=== PATIENT | female | born 1955 | race American Indian/Alaskan Native ===

== ENCOUNTER 2024-04-05 02:05 | Inpatient (IN) | payer OTHER, SELFPAY ==
[2024-04-04 19:16] VITALS: BP 113/66
[2024-04-04 19:45] LABS: % Basophils 1.5 % (0-2); % Eosinophils 5.9 % (0-6); % Immature Granulocytes 0.3 % (0-0.5); % Lymphocytes 23.1 % (20.5-51.1); % Monocytes 7.5 % (1.7-9.3); % Neutrophils 61.7 % (42.2-75.2); Absolute Basophils 0.1 10^3/uL (0-0.2); Absolute Eosinophils 0.4 10^3/uL (0-0.7); Absolute Lymphocytes 1.7 10^3/uL (1.2-3.4); Absolute Monocytes 0.5 10^3/uL (0.1-0.6); Absolute Neutrophils 4.5 10^3/uL (1.4-6.5); Hematocrit 34.2 % (37.0-47.0); Hemoglobin 11.4 g/dL (12.0-16.0); Mean Corp Hgb Conc. 33.3 g/dL (33.0-37.0); Mean Corpuscular Hgb 30.2 pg (27.0-31.0); Mean Corpuscular Volume 90.5 fL (81.0-99.0); Mean Platelet Volume 11.1 fL (7.4-10.4); Nucleated Red Blood Cells % 0 %; Platelet Count 324 10^3/uL (130-400); Red Blood Cell Count 3.78 10^6/uL (4.20-5.40); Red Cell Dist. Width 14.5 % (11.5-14.5); White Blood Cell Count 7.2 10^3/uL (4.8-10.8)
[2024-04-04 19:57] LABS: Lithium 1.5 mmol/L (0.6-1.2)
[2024-04-04 19:58] LABS: ALT (SGPT) 24 U/L (0-35); AST (SGOT) 24 U/L (14-36); Albumin 4.6 g/dl (3.5-5.0); Alkaline Phosphatase 109 U/L (38-126); Blood Urea Nitrogen 15 mg/dl (7-17); Calcium 10.5 mg/dl (8.4-10.2); Carbon Dioxide 21 mmol/L (22-30); Chloride 104 mmol/L (98-107); Glucose 137 mg/dl (70-99); Potassium 4.6 mmol/L (3.5-5.1); Sodium 137 mmol/L (135-145); Total Bilirubin 0.7 mg/dl (0.2-1.3); Total Protein 7.4 g/dl (6.3-8.2); eGFR > 60.00
[2024-04-04 20:06] VITALS: BMI 22.6
[2024-04-04 21:00] VITALS: BP 115/57
[2024-04-04 22:00] VITALS: BP 113/62
[2024-04-04 23:00] VITALS: BP 116/66
--- NOTE | 2024-04-04 23:42 | ED.GENMED ---
History of Present Illness
General
Chief Complaint: Overdose Unintentional
Source: patient and family
Exam Limitations: none
Time Seen by Provider: 04/04/24 20:19
Nursing documentation reviewed up to this point in time: agreed with
History of Present Illness
History of Present Illness:
Patient is a 68-year-old female long history of being bipolar and on lithium however over the last 2 weeks the patient has been getting weaker and having difficulty ambulating. Patient has not had a change in her medication other than her
psychiatrist trying to bring down her dosages of Prozac, Klonopin and Xanax. Patient denies any anorexia or nausea but does have postprandial diarrhea for the past few months and has gotten worse over the past few days. Patient denies any decrease
in weight. Patient denies fever or chills, nasal congestion, sore throat or cough. Patient had knee surgery in September of this year and since then has had increasing difficulties. Patient denies any symptoms. Patient's lithium level was checked
and found to be 1.9 which normally are level is 0.5.
Past History
Past History
ED Past Medical History: HTN, NIDDM and Psychiatric (Bipolar)
Social History
Tobacco: Non-smoker
Alcohol: None
Drug: None
Review of Systems
Review of Systems
All Other Systems: ROS reviewed and negative except as documented in HPI and ROS
Constitutional: Reports fatigue; Denies fever, weight loss or chills
EENT: Reports no symptoms
Respiratory: Reports no symptoms
Cardiac: Reports no symptoms
ABD/GI: Reports diarrhea; Denies abdominal pain, nausea, vomiting, bloody stools, black stools or anorexia
: Reports no symptoms
Musculoskeletal: Reports no symptoms
Skin: Reports no symptoms
Neurological: Reports weakness (Generalized)
Hematologic/Lymphatic: Reports no symptoms
Psychiatric: Reports no symptoms
Phy Exam
Physical Exam
Physical Exam:
Physical Exam
General: No apparent distress, alert and appropriate, well nourished, dry mucous membranes
HENT: Normocephalic, supple with no lymphadenopathy, no thyromegaly
Eyes: Clear sclera, conjuctiva without injection
Heart: Regular rhythm and rate. No S3, S4. No murmur. No NVD
Lungs: No respiratory distress, no stridor, lung sounds clear and equal bilaterally
Abdomen: Soft, nontender, no organomegaly, no CVA tenderness, BS good
Neuro: Alert and oriented x 3, CN II - XII intact, no motor focality, no cerebellar dysfunction
Skin: no rash
Psychiatric: well kept. interactive and cooperative
Extremities: No edema, cyanosis, tenderness, Good and equal peripheral pulses.
Course
Orders/Labs/Results
Orders:
Orders
04/04/24 19:19
EKG [Electrocardiogram (*1)] Urgent
Reason for Study: Other
Other Reason for Exam: high lithium level
04/04/24 19:20
EKG- Treatment ONCE
04/04/24 19:33
CBC/With Diff [Complete Blood Count/With Diff] Urgent
CMP [Comprehensive Metabolic Panel] Urgent
[place] Urgent
04/04/24 20:56
0.9% Sodium Chloride 1000 ml [Nss] 1,000 ml IV BOLUS
04/04/24 21:00
0.9% Sodium Chloride 500 ml [Nss] 500 ml IV 200 mls/hr
Abnormal Lab Results
04/04/24
19:33
RBC 3.78 L 10^6/uL
(4.20-5.40)
Hgb 11.4 L g/dL
(12.0-16.0)
Hct 34.2 L %
(37.0-47.0)
MPV 11.1 H fL
(7.4-10.4)
Carbon Dioxide 21 L mmol/L
(22-30)
Glucose 137 H mg/dl
(70-99)
Calcium 10.5 H mg/dl
(8.4-10.2)
[place] 1.5 H mmol/L
(0.6-1.2)
04/04/24 19:33
04/04/24 19:33
Vital Signs
Initial and Last Documented VS:
Initial Vital Signs
Temp Pulse Resp BP Pulse Ox
97.8 F 72 15 113/66 95
04/04/24 19:16 04/04/24 19:16 04/04/24 19:16 04/04/24 19:16 04/04/24 19:16
Last Documented Vital Signs
Temp Pulse Resp BP Pulse Ox
97.8 F 61 15 130/69 100
04/04/24 19:16 04/05/24 00:00 04/05/24 00:00 04/05/24 00:00 04/05/24 00:00
*Radiology
Radiology exam reviewed: other (na)
*Pulse Oximetry
Patient hypoxic: no
*EKG
Interpreted by ED Provider?: Yes
EKG Intrepretation Date: 04/05/24
EKG Intrepretation Time: 00:20
Interpretation: abnormal
Comparison EKG: no comparison EKG present
Heart Rate: 73
Rate: normal
Rhythm: sinus
[place]: normal axis
Interval: normal interval
QRS Pattern: right bundle branch block
Ischemia: no ischemia
*Claims Specialist Interpretation
Rate: normal
Interpretation: normal
Heart Rate: 73
Rhythm: sinus
*Critical Care Note
Total Time (30-74mins, 75-104mins- exclusive of procedures): Not Applicable
ED Attending Note
-
Portions of this chart may have been created with voice recognition software.� Occasional wrong word or��sound alike� substitutions may have occurred due to the inherent limitations of voice recognition software.
Discharge Plan
Departure
Patient Disposition: Admit
Date of Disposition: 04/05/24
Time of Disposition: 00:21
Admit to: Telemetry
Admit to doctor: Hospitalist
Presentation/result/management discussed w/ accepting MD/DO: Hospitalist
Patient with high blood pressure during this ER visit?: No
Condition: Fair
Covid-19: Not Applicable
Discharge Problem:
[place] toxicity
Prescriptions:
No Action
alprazolam 1 mg Tablet
1 mg PO QPM
clonazepam 0.5 mg Tablet
0.75 mg PO DAILY
Patient Comments:
04/04/2024: last filled 03/20/24, 15 tabs [facility]
lithium carbonate 450 mg tablet extended release
450 mg PO QPM
pantoprazole 40 mg Tablet,Delayed Release (Dr/Ec)
40 mg PO QPM
fluoxetine 20 mg Tablet
30 mg PO DAILY
lisinopril 10 mg tablet
10 mg PO DAILY
rosuvastatin 10 mg tablet
10 mg PO DAILY
alogliptin 6.25 mg Tablet
6.25 mg PO QPM
Referrals:
Paty Fuchs MD [Family Provider] -
Interventions
Interventions:
*Risk Screen - Suicide Last Done: 04/04/24 19:16
*General Assessment Last Done: 04/04/24 19:16
*Neglect/Abuse Screening Last Done: 04/04/24 19:16
ED- Cardiac Assessment Last Done: 04/04/24 20:06
ED- Neurological Assessment Last Done: 04/04/24 20:06
ED-Psychological Assessment Last Done: 04/04/24 20:06
ED- Pulmonary Assessment Last Done: 04/04/24 20:06
Discharge Date and Time
Print Language: [place]
[2024-04-04] MEDS: NSS 1000 IV (23:51)
[2024-04-04] MEDS: NSS 500 IV (23:51)
[2024-04-05] VITALS (7 sets, daily range): BP systolic 108–130; BP diastolic 52–89; BMI 22.6
--- NOTE | 2024-04-05 01:25 | HPS.HSE ---
Family Physician
-
Family Physician: Paty Fuchs
Chief Complaint
-
Elevated lithium level
History of Present Illness
Patient with history of bipolar disorder on lithium who presents to the emergency department after a check of the lithium showed a level of 1.9.
Patient and daughter reported that patient's lithium was last checked several months ago around September at the time of alterations in pain medications. After settling the pain medications they have not checked lithium since. She did had a new
psychiatrist we decided to check the lithium a few days ago. It was actually checked approximately 3 days ago. At that time the lithium level was 1.9. He initially asked to stop taking the lithium and observe for 3 days. However family reports
that the patient has been having increasing confusion over the last month. She has had increasing tremor and instability as well as some weakness. She had diarrhea more recently. Denies polyuria. Due to these findings the patient was referred to
the hospital for evaluation.
In the ED she was afebrile hemodynamically stable and in no acute distress. Her CBC was unchanged and unremarkable. Chemistries are also stable with a creatinine of 0.9 and a potassium of 4.6. The lithium level was 1.5. Her last dose of lithium
was Wednesday evening for which she took the full 50 mg in the evening.
Medical History
Past Medical History
Past Medical History: Reports Psychiatric
Additional Past Medical History:
BIPOLAR
Past Surgical History: Reports Orthopedic
Additional Past Surgical History:
Total knee arthroplasty
Social History
Tobacco: Non-smoker
Alcohol: None
Drug: None
Personal:
Living: With Family
Employment: Not Employed
Family History
Family History: Not pertinent
Allergies / Home Medications
Allergies reflects when Allergies were last updated in [employer].
Home Medications with original date entered in [employer]
Allergy/Medication List:
Allergies
Allergy/AdvReac Type Severity Reaction Status Date / Time
No Known Allergies Allergy Unverified 04/04/24 22:02
Home Medications
alogliptin 6.25 mg tablet 6.25 mg PO QPM 04/04/24
alprazolam 1 mg tablet 1 mg PO QPM 04/04/24
clonazepam 0.5 mg tablet 0.75 mg PO DAILY 04/04/24
fluoxetine 20 mg tablet 30 mg PO DAILY 04/04/24
lisinopril 10 mg tablet 10 mg PO DAILY 04/04/24
lithium carbonate 450 mg tablet,extended release 450 mg PO QPM 04/04/24
pantoprazole 40 mg tablet,delayed release 40 mg PO QPM 04/04/24
rosuvastatin 10 mg tablet 10 mg PO DAILY 04/04/24
Review of Systems
-
History Source: Patient and Family
Constitutional: Reports No Symptoms
EENT: Reports No Symptoms
Respiratory: Reports No Symptoms
Cardiac: Reports No Symptoms
Abdomen/GI: Reports Diarrhea
Musculoskeletal: Reports No Symptoms
Skin: Reports No Symptoms
Neurological: Reports No Symptoms
Endocrine: Reports No Symptoms
Hematologic/Lymphatic: Reports No Symptoms
Psych: Reports No Symptoms
Physical Exam
Vital Signs
Vital Signs
Temp Pulse Resp BP Pulse Ox
97.8 F 61 15 130/69 100
04/04/24 19:16 04/05/24 00:00 04/05/24 00:00 04/05/24 00:00 04/05/24 00:00
Physical Exam
General: Well Developed, Well Nourished and No Apparent Distress
HEENT: NormoCephalic, Anicteric, Moist mucous membranes and Atraumatic
Respiratory: Clear
Cardiac: S1/S2 and Regular Rhythm
Breast: Deferred by me
GI: Soft, Non Tender, Non Distended and Normal Bowel Sounds
Rectal: Deferred by Provider
Genito-urinary: Deferred by me
Musculoskeletal: No Clubbing, No Cyanosis and No Edema
Skin: Warm
Neuro: AO x 3
Hematologic/Lymphatic: No Lymphadenopathy
Psych: Calm
Laboratory Results
-
04/04/24 19:33
04/04/24:33
Laboratory Results
Total Bilirubin 0.7 mg/dl (0.2-1.3) 04/04/24:33
AST 24 U/L (14-36) 04/04/24:33
ALT 24 U/L (0-35) 04/04/24:33
Alkaline Phosphatase 109 U/L (38-126) 04/04/24:33
Data Reviewed
-
Lab Data: Labs Reviewed by me
Old Records: Reviewed
Impression/Plan
-
IMPRESSION:
Patient with history of bipolar comes in after routine blood test shows elevated lithium level, she does have subacute symptoms over the last month with weakness tremors confusion which will be consistent with subacute lithium toxicity. D level was
1.9 at the physician's office 3 days ago. On admission to the ED the patient sedation level was 1.5. She appears mostly euvolemic despite a couple days of some diarrhea.
PLAN:
1. [place] toxicity - Mild to moderate symptoms. Mild elevation. Normal renal function. No signs of polyuria or hypernatremia.
- admit to med/surg
- volume expansion, s/p bolus in ED, continuing with 175 ml/hr ns
- monitor serum Na
- repeat Li level in am, when level below 0.8, fluids can be d/c and patient d/c'd
- hold lithium carbonate
- pt eval
2. BIPOLAR
- continue fluoxetin and benzos for now
3. DM II
-on gliptin at home, continue with sliding scale insulin for now
Other issues
- continue lisinopril, ppi
DVT PPX - lovenox sq
Code Status - Full Code
[2024-04-05] MEDS: NSS 1000 IV ×4 (02:42→23:04)
[2024-04-05] MEDS: TYLENOL 650 MG PO (03:56)
[2024-04-05 06:51] LABS: Blood Urea Nitrogen 12 mg/dl (7-17); Calcium 9.6 mg/dl (8.4-10.2); Carbon Dioxide 18 mmol/L (22-30); Chloride 113 mmol/L (98-107); Estimated Creatinine Clearance 53 ml/min; Glucose 165 mg/dl (70-99); Lithium 1.3 mmol/L (0.6-1.2); Potassium 4.6 mmol/L (3.5-5.1); Sodium 140 mmol/L (135-145); eGFR > 60.00
[2024-04-05] MEDS: CRESTOR 10 MG PO (08:13)
[2024-04-05] MEDS: PROZAC 30 MG PO (08:13)
[2024-04-05] MEDS: ZESTRIL 10 MG PO (08:14)
[2024-04-05 08:23] LABS: Glucose - Point of Care 111 mg/dl (70-99)
--- NOTE | 2024-04-05 11:28 | W.PN.HOSP.TC ---
Today's Communication/Plan
-
Continue with IVF
Trend BMP and lithium levels
[place] level goal <0.8
Assessment / Plan
Assessment / Plan
#[place] toxicity
-Mild to moderate symptoms consisting of tremor, confusion, weakness; no nephrogenic DI
-Has been on lithium for many years with stable serum levels
-Had recent knee surgery, was on tramadol, did not have levels checked for last 3-months
-Upon review of literature no findings of tramadol interfering with lithium excretion
-Serum creatinine 1.9 on outpatient labs, 1.5�1.3 here while on IVF
-Will continue IVF and trend lithium levels and BMP
-Plan for DC off lithium when levels <0.8, symptoms minimal
-Will need to follow-up outpatient for mood stabilizer regimen
#Bipolar disorder
-Home medications included lithium, fluoxetine, benzodiazepine
-Holding lithium as above
-Mood seems stable
#T2DM
#HLD
-No recent A1c or FLP; home medications include alogliptin and statin
-No known systemic microvascular complications or ASCVD history
-Alogliptin held, on ISS with Accu-Cheks; continued on statin
#HTN
-Home medications include lisinopril, no history of systemic complications
-Blood pressure currently well-controlled
DVT prophylaxis subcutaneous Lovenox
Diet: Regular
CODE STATUS: Full code
Anticipated Discharge: Within 24 hours
Subjective/Interval History
-
Date of Service: April 05, 2024
Seen and examined at the bedside. No acute events reported overnight. AFVSS this morning.
Her son was at the bedside and helped interpret, as well as received an update. Symptoms are improving though still present. Serum sodium without signs of nephrogenic DI as of now
Denies chest pain, dyspnea, fevers or chills, GI issues, urinary issue, bleeding or bruising, focal weakness or paresthesia. Does continue to have generalized weakness, mild confusion. Tremor improved.
Objective Data
-
Labs:
Laboratory Results
04/05/24 04/05/24
06:03 14:00
Sodium 140 Pending
Potassium 4.6 Pending
Chloride 113 H Pending
Carbon Dioxide 18 L Pending
BUN 12 Pending
Creatinine 0.8 Pending
Glucose 165 H Pending
Calcium 9.6 Pending
Vital Signs:
Vital Signs
Temp Pulse Resp BP Pulse Ox
98.0 F 63 12 127/63 100
04/05/24 07:00 04/05/24 07:00 04/05/24 07:00 04/05/24 07:00 04/05/24 07:00
Review of Systems
-
History Source: Patient and Family
All other systems: Reviewed and negative
Physical Exam
-
General: Well Nourished, No Apparent Distress and Comfortable
HEENT: Normocephalic, Atraumatic and Moist Mucous Membranes
Respiratory: Clear to Auscultation and Non Labored Respirations
Cardiac: Regular Rhythm and S1/S2; Negative Murmur, Rub or Gallop
GI: Soft, Nontender, Nondistended and Normal Bowel Sounds
Musculoskeletal: No Clubbing, No Cyanosis and No Edema
Skin: Warm and Dry; Negative Rash
Neuro: AO x 3, Tremors (Very mild hand tremor with arms extended), Nonfocal/Grossly Intact and Central Nerve's Intact; Negative Slurred Speech
Psych: Calm
Data Reviewed
-
Labs: Labs Reviewed by me, Discussed with Patient and Discussed with Family
[2024-04-05 12:09] LABS: Glucose - Point of Care 134 mg/dl (70-99)
--- NOTE | 2024-04-05 14:00 | CM ---
CM reviewed chart. CM introduced self and role. Patient's son also in room and assisted in answering some of the questions. Patient lives at home with her son and daughter. They live in a multi-level home and [facility] has 1st floor set up. There are 3
steps to enter. She does not drive or work. She is independent. She does not own any DME. She denies any +SDOHs. She has an active PCP and pharmacy. Son asked what the plan of care is. CM educated him.
ANTICIPATED DISCHARGE DISPOSITION: Home with son and daughter, when medically cleared.
[2024-04-05 14:21] LABS: Blood Urea Nitrogen 8 mg/dl (7-17); Calcium 9.9 mg/dl (8.4-10.2); Carbon Dioxide 20 mmol/L (22-30); Chloride 113 mmol/L (98-107); Estimated Creatinine Clearance 61 ml/min; Glucose 185 mg/dl (70-99); Potassium 5.1 mmol/L (3.5-5.1); Sodium 142 mmol/L (135-145); eGFR > 60.00
[2024-04-05 16:18] LABS: Glucose - Point of Care 130 mg/dl (70-99)
[2024-04-05] MEDS: PROTONIX 40 MG PO (17:29)
[2024-04-05] MEDS: LOVENOX 40 MG SC (17:29)
[2024-04-05] MEDS: XANAX 1 MG PO (17:54)
[2024-04-05 21:16] LABS: Glucose - Point of Care 97 mg/dl (70-99)
[2024-04-06] MEDS: TYLENOL 650 MG PO (02:45)
[2024-04-06 07:27] VITALS: BP 124/69
[2024-04-06 08:03] LABS: Glucose - Point of Care 100 mg/dl (70-99)
[2024-04-06] MEDS: CRESTOR 10 MG PO (08:46)
[2024-04-06] MEDS: PROZAC 30 MG PO (08:46)
[2024-04-06] MEDS: KLONOPIN 0.75 MG PO (08:46)
[2024-04-06] MEDS: ZESTRIL 10 MG PO (08:46)
[2024-04-06 09:23] LABS: Blood Urea Nitrogen 10 mg/dl (7-17); Carbon Dioxide 18 mmol/L (22-30); Chloride 113 mmol/L (98-107); Estimated Creatinine Clearance 61 ml/min; Glucose 116 mg/dl (70-99); Lithium 0.7 mmol/L (0.6-1.2); Potassium 4.6 mmol/L (3.5-5.1); Sodium 141 mmol/L (135-145); eGFR > 60.00
--- NOTE | 2024-04-06 10:28 | W.PN.HOSP.TC ---
Today's Communication/Plan
-
Discontinue lithium until follow-up with psychiatry
SSRI taper outpatient now that she is off lithium
Discharge
Assessment / Plan
Assessment / Plan
#[place] toxicity
-Mild to moderate symptoms consisting of tremor, confusion, weakness; no nephrogenic DI
-Has been on lithium for many years with stable serum levels
-Had recent knee surgery, was on tramadol, did not have levels checked for last 3-months
-Upon review of literature no findings of tramadol interfering with lithium excretion
-Serum creatinine 1.9 on outpatient labs, 1.5�1.3 here while on IVF
-Will continue IVF and trend lithium levels and BMP
-Plan for DC off lithium when levels <0.8, symptoms minimal
-Will need to follow-up outpatient for mood stabilizer regimen
#Bipolar disorder
-Home medications included lithium, fluoxetine, benzodiazepine
-Holding lithium as above
-Mood seems stable
#T2DM
#HLD
-No recent A1c or FLP; home medications include alogliptin and statin
-No known systemic microvascular complications or ASCVD history
-Alogliptin held, on ISS with Accu-Cheks; continued on statin
#HTN
-Home medications include lisinopril, no history of systemic complications
-Blood pressure currently well-controlled
DVT prophylaxis subcutaneous Lovenox
Diet: Regular
CODE STATUS: Full code
Anticipated Discharge: Today
Subjective/Interval History
-
Date of Service: April 06, 2024
Seen and examined at the bedside. No acute events reported overnight. AFVSS this morning.
Morning labs came back with lithium level 0.7, serum sodium stable at 144
Patient states her weakness, tremor, confusion are improved. Daughter at the bedside and agrees. Plan for discharge
Objective Data
-
Labs:
Laboratory Results
04/06/24
08:08
Sodium 141
Potassium 4.6
Chloride 113 H
Carbon Dioxide 18 L
BUN 10
Creatinine 0.7
Glucose 116 H
Calcium 10.0
Vital Signs:
Vital Signs
Temp Pulse Resp BP Pulse Ox
97.4 F 69 18 124/69 100
04/06/24 07:27 04/06/24 07:27 04/06/24 07:27 04/06/24 07:27 04/06/24 07:27
Review of Systems
-
History Source: Patient
All other systems: Reviewed and negative
Physical Exam
-
General: Well Nourished and No Apparent Distress
HEENT: Normocephalic, Atraumatic and Moist Mucous Membranes
Respiratory: Clear to Auscultation and Non Labored Respirations
Cardiac: Regular Rhythm and S1/S2; Negative Murmur
GI: Soft, Nontender, Nondistended and Normal Bowel Sounds
Musculoskeletal: No Clubbing, No Cyanosis and No Edema
Skin: Warm and Dry; Negative Rash
Neuro: AO x 3, Nonfocal/Grossly Intact and Central Nerve's Intact
Psych: Calm
Data Reviewed
-
Labs: Labs Reviewed by me, Discussed with Patient and Discussed with Family (Daughter)
[2024-04-06 11:27] VITALS: BP 144/68
--- NOTE | 2024-04-06 13:45 | W.DCSUMMARY ---
Discharge Summary
Discharge Data
Date of Admission: 04/05/24
Date of Discharge: 04/06/24
-
Pending Results: No
Hospital Course
68-year-old female with bipolar disorder, T2DM, HTN, HLD that presented to the hospital with weakness, tremor, confusion over multiple weeks. Outpatient labs with creatinine level 1.9. Was directed to come to the ED by her psychiatrist. Upon
arrival lithium level elevated and was started on IV fluids. Monitored lithium level with goal <0.8 which was achieved on day 2 of hospital stay. Monitor BMP without any evidence of nephrogenic diabetes insipidus. Her symptoms improved following
illumination of lithium and normalization of her blood levels. [place] was discontinued. Started taper of fluoxetine due to potential for worsening puneet in the context of bipolar disorder. Should start 20 mg fluoxetine starting after discharge.
Will follow-up with psychiatrist for optimization of bipolar regimen and further guidance on SSRI taper.
Discharge Plan
-
Patient Disposition: Home (Routine Discharge)
Discharge Diagnosis/Procedures: [place] toxicity
Condition: Good
Diet: No restrictions
Activity: As tolerated
Driving Restrictions: As prior to admission
Bathing Restrictions: None
Activity Restrictions/Additional Instructions:
After discharge from hospital follow up with your family doctor and psychiatrist within 1 to 2 weeks.
If there are any acute changes to mood then call psychiatrist for recommendations
Instructions: [place]
Referrals:
Paty Fuchs MD [Family Provider] -
Additional Discharge Medication Instructions: Discontinue lithium carbonate
Decreased dose of fluoxetine to 20 mg daily. Continue to taper fluoxetine as directed by psychiatrist
Prescriptions:
New
fluoxetine 10 mg Capsule
20 mg PO DAILY 7 Days Qty: 14 0RF
Continued
alprazolam 1 mg Tablet
1 mg PO QPM
clonazepam 0.5 mg Tablet
0.75 mg PO DAILY
Patient Comments:
04/04/2024: last filled 03/20/24, [facility]
pantoprazole 40 mg Tablet,Delayed Release (Dr/Ec)
40 mg PO QPM
lisinopril 10 mg tablet
10 mg PO DAILY
rosuvastatin 10 mg tablet
10 mg PO DAILY
alogliptin 6.25 mg Tablet
6.25 mg PO QPM
Discontinued
lithium carbonate 450 mg tablet extended release
450 mg PO QPM
fluoxetine 20 mg Tablet
30 mg PO DAILY
Discharge Orders:
Discharge Patient (As Directed); Ordered 04/06/24
Ordered By: Peterson Murphy
Discharge Date and Time
Discharge Date/Time: 04/06/24 13:12
Print Language: [place]
== END 2024-04-06 13:12 | disposition home or self-care (01) | DRG 918 ==
LOC: 4 EAST ACU 02:05
PROVIDERS: ADMITTING PHYSICIAN Internal Medicine; ATTENDING PHYSICIAN Internal Medicine; EMERGENCY PHYSICIAN Emergency Medicine; FAMILY PHYSICIAN Specialist
DX: T43.501A Poisoning by unspecified antipsychotics and neuroleptics, accidental (unintentional), initial encounter (principal); F31.9 Bipolar disorder, unspecified; E11.9 Type 2 diabetes mellitus without complications; E78.5 Hyperlipidemia, unspecified; I10 Essential (primary) hypertension
CPT/HCPCS: 80048; 80053; 80178; 82962; 85025; 93005